=== PATIENT | female | born 1950 | race Caucasian/White ===

== ENCOUNTER 2017-03-26 15:26 | Emergency (ER) | payer MEDICARE, OTHER ==
[~2017-03-26] VITALS: Ht 157.5 cm; Wt 65.5 kg
[~2017-03-26 15:26] MED LIST: ADV250 IH; ALBU8HFA IH; ARIP2 PO; AUD NEB; AZIT250T6 PO; DONE10TA PO; GABA-531 PO; LISI-662 PO; METF500T4 PO; METO50 PO; MORP30CP13 PO; OMEP20 PO; OXYC20 PO; SENN-161 PO; SIMV-259 PO; TEMA15CA PO; TRAZ-144 PO
[2017-03-26 18:49] LABS: BASOPHILS % (AUTO) 0.4 % (0.0-2.0); HEMATOCRIT 36.5 % (36-46); HEMOGLOBIN 12.4 g/dL (12.0-16.0); LYMPHOCYTES # (AUTO) 1.6 K/uL (1.0-4.8); LYMPHOCYTES % (AUTO) 25.1 % (22.0-44.0); MEAN CORPUSCULAR HEMOGLOBIN 30.6 pg (26.0-34.0); MEAN CORPUSCULAR HGB CONC 33.9 G/dL (31.0-37.0); MEAN CORPUSCULAR VOLUME 90 fL (80-100); MONOCYTES # (AUTO) 0.5 K/uL (0.1-1.0); MONOCYTES % (AUTO) 8.1 % (2.0-9.0); NEUTROPHILS # (AUTO) 4.2 K/uL (1.8-7.7); NEUTROPHILS % (AUTO) 64.4 % (40.0-70.0); PLATELET COUNT (AUTO) 222 K/uL (150-450); RED BLOOD CELL COUNT(AUTO) 4.05 MIL/uL (4.00-5.20); RED CELL DISTRIBUTION WIDTH 14.8 % (11.5-14.5); WHITE BLOOD COUNT (AUTO) 6.5 K/uL (4.5-11.0)
[2017-03-26 18:59] LABS: CALCIUM, TOTAL 9.1 mg/dL (8.8-10.5); CREATININE 1.15 mg/dL (0.60-1.30); POTASSIUM 4.4 mmol/L (3.5-5.1)
[2017-03-26 19:05] LABS: ALBUMIN 3.3 g/dL (3.4-5.0); BILIRUBIN,TOTAL 0.2 mg/dL (0.1-1.0); TOTAL PROTEIN, SERUM 6.3 g/dL (6.4-8.2)
[2017-03-26 19:38] LABS: APPEARANCE,URINE CLEAR (CLEAR); GLUCOSE, URINE (UA) NEGATIVE (NEGATIVE); KETONES,URINE NEGATIVE (NEGATIVE); LEUKOCYTE ESTERASE ,URINE MODERATE (NEGATIVE); OCCULT BLOOD,URINE NEGATIVE (NEGATIVE); PH,URINE 6.5 (5.0-8.0); PROTEIN,URINE NEGATIVE (NEGATIVE)
[2017-03-26 19:40] LABS: ADD UA MICROSCOPIC YES
[2017-03-26 19:48] LABS: RBC,URINE None Seen /HPF (0-2); SQUAMOUS EPITHELIAL CELL,UR Rare /LPF (None Seen)
[2017-03-26 20:15] VITALS: BP 109/62
[2017-03-26] MEDS ORDERED: TraMADol HCL 50 MG TABLET PO ONE (20:15)
== END 2017-03-26 20:31 | disposition home or self-care (01) ==
LOC: EMS 15:29
DX: N39.0 Urinary tract infection, site not specified (principal); E11.9 Type 2 diabetes mellitus without complications; E78.00 Pure hypercholesterolemia, unspecified; I11.9 Hypertensive heart disease without heart failure; G89.29 Other chronic pain; J44.9 Chronic obstructive pulmonary disease, unspecified; K21.9 Gastro-esophageal reflux disease without esophagitis; F17.210 Nicotine dependence, cigarettes, uncomplicated; Z86.73 Personal history of transient ischemic attack (TIA), and cerebral infarction without residual deficits; Z76.0 Encounter for issue of repeat prescription; Z88.6 Allergy status to analgesic agent
CPT/HCPCS: 82962; 87086; 99284

== ENCOUNTER 2017-05-17 17:04 | Inpatient (IN) | payer MEDICARE, OTHER ==
[~2017-05-17] VITALS: Ht 157.5 cm; Wt 63.8 kg
[~2017-05-17 17:04] MED LIST changes: -DONE10TA PO; +DONE10TA8 PO
[2017-05-17] MEDS ORDERED: AMLO-511 PO (17:42)
[2017-05-17] MEDS ORDERED: OXYC10 PO (17:42)
[2017-05-17] MEDS ORDERED: TRAM50TA4 PO (17:42)
[2017-05-17] MEDS ORDERED: SERT50TA12 PO (17:42)
[2017-05-17] MEDS ORDERED: CLON.5 PO (17:42)
[2017-05-17] MEDS ORDERED: VITAD1000 PO (17:42)
[2017-05-17 18:09] LABS: BASOPHILS % (AUTO) 0.3 % (0.0-2.0); EOSINOPHILS % (AUTO) 1.5 % (1.0-6.0); HEMATOCRIT 33.9 % (36-46); HEMOGLOBIN 11.4 g/dL (12.0-16.0); LYMPHOCYTES # (AUTO) 1.2 K/uL (1.0-4.8); LYMPHOCYTES % (AUTO) 13.9 % (22.0-44.0); MEAN CORPUSCULAR HEMOGLOBIN 31.1 pg (26.0-34.0); MEAN CORPUSCULAR HGB CONC 33.7 G/dL (31.0-37.0); MEAN CORPUSCULAR VOLUME 92 fL (80-100); MONOCYTES # (AUTO) 0.6 K/uL (0.1-1.0); MONOCYTES % (AUTO) 6.6 % (2.0-9.0); NEUTROPHILS # (AUTO) 6.7 K/uL (1.8-7.7); NEUTROPHILS % (AUTO) 77.7 % (40.0-70.0); PLATELET COUNT (AUTO) 219 K/uL (150-450); RED BLOOD CELL COUNT(AUTO) 3.67 MIL/uL (4.00-5.20); RED CELL DISTRIBUTION WIDTH 13.8 % (11.5-14.5); WHITE BLOOD COUNT (AUTO) 8.6 K/uL (4.5-11.0)
[2017-05-17 18:30] LABS: ANION GAP 6 mmol/L (8-16); CARBON DIOXIDE 30 mmol/L (22-29); CHLORIDE 104 mmol/L (98-107); CREATININE 0.84 mg/dL (0.60-1.30); GLOMERULAR FILTR. RATE CALC > 60 mL/min (>60); POTASSIUM 4.2 mmol/L (3.5-5.1); SODIUM SERUM 140 mmol/L (136-145); UREA NITROGEN, BLOOD 9 mg/dL (7-18)
[2017-05-17 18:31] LABS: PROTHROMBIN TIME 10.6 SEC (9.4-11.6)
[2017-05-17 18:36] LABS: ALANINE AMINOTRANSFERASE 21 U/L (12-78); ASPARTATE AMINOTRANSFERASE 16 U/L (15-37); BILIRUBIN,TOTAL 0.3 mg/dL (0.1-1.0); CREATINE KINASE, TOTAL 25 U/L (26-192); TOTAL PROTEIN, SERUM 6.1 g/dL (6.4-8.2)
[2017-05-17 18:38] LABS: B-TYPE NATRIURETIC PEPTIDE 16 pg/mL (0-100)
[2017-05-17] MEDS ORDERED: CLOPIDOGREL BISULFATE 75 MG TABLET PO ONE (18:45)
[2017-05-17] MEDS ORDERED: ALBUTEROL SULFATE 5 MG/ML 20 ML NEB SOLN [BULK] NEB ONE (18:45)
[2017-05-17] MEDS ORDERED: IPRATROPIUM BROMIDE 0.5 MG/2.5 ML NEB SOLUTION NEB ONE (18:45)
[2017-05-17] MEDS ORDERED: CefTRIAXone 1 GM/DEXTROSE 50 ML IV ONE (18:45)
[2017-05-17] MEDS ORDERED: ONDANSETRON HCL 4 MG/2 ML VIAL IVP ONE (18:45)
[2017-05-17] MEDS ORDERED: MethylPREDNISolone SOD SUCC 125 MG/2 ML VIAL IVP ONE (18:45)
[2017-05-17] MEDS ORDERED: 0.9% SODIUM CHLORIDE 5 ML NEB SOLUTION NEB ONE (19:06)
[2017-05-17] MEDS ORDERED: NITROGLYCERIN 0.4 MG SUBLINGUAL TABLET #25 SL ONE (19:15)
[2017-05-17] MEDS ORDERED: MORPHINE SULFATE 2 MG/ML SYRINGE IVP ONE (19:15)
[2017-05-17 19:44] LABS: APPEARANCE,URINE CLOUDY (CLEAR); GLUCOSE, URINE (UA) NEGATIVE (NEGATIVE); KETONES,URINE NEGATIVE (NEGATIVE); LEUKOCYTE ESTERASE ,URINE SMALL (NEGATIVE); OCCULT BLOOD,URINE NEGATIVE (NEGATIVE); PH,URINE 5.5 (5.0-8.0); PROTEIN,URINE NEGATIVE (NEGATIVE)
[2017-05-17 19:46] LABS: ADD UA MICROSCOPIC YES
[2017-05-17 20:06] LABS: SQUAMOUS EPITHELIAL CELL,UR Few /LPF (None Seen)
[2017-05-17 20:07] LABS: RBC,URINE 0-2 /HPF (0-2); TRANSITIONAL EPI CELLS,URINE Moderate /LPF (None Seen)
[2017-05-17] MEDS ORDERED: 0.9% SODIUM CHLORIDE 10 ML SYRINGE IVP PRN (20:45)
[2017-05-17] MEDS ORDERED: ONDANSETRON HCL 4 MG/2 ML VIAL IVP PRN (20:45)
[2017-05-17] MEDS ORDERED: ACETAMINOPHEN 325 MG TABLET PO PRN (20:45)
[2017-05-17 20:53] LABS: INFLUENZA TYPE B NEGATIVE FOR TYPE B (NEGATIVE)
[2017-05-17 21:46] VITALS: BP 98/51
[2017-05-17] MEDS ORDERED: IPRATROPIUM BROMIDE 0.5 MG/2.5 ML NEB SOLUTION NEB SCH (23:00)
[2017-05-17] MEDS ORDERED: ALBUTEROL SULFATE 2.5 MG/0.5 ML NEB SOLUTION NEB SCH (23:00)
[2017-05-17 23:39] VITALS: BP 101/60
[2017-05-18] MEDS ORDERED: DEXTROSE 50%-WATER 25 GM/50 ML SYRINGE IVP PRN (00:45)
[2017-05-18] MEDS ORDERED: BISACODYL 10 MG RECTAL RECTAL SUPPOSITORY PR PRN (01:00)
[2017-05-18] MEDS ORDERED: MAGNESIUM HYDROXIDE SUSPENSION 30 ML UDCUP PO PRN (01:00)
[2017-05-18] MEDS ORDERED: IPRATROPIUM BROMIDE 0.5 MG/2.5 ML NEB SOLUTION NEB PRN (01:00)
[2017-05-18] MEDS ORDERED: ONDANSETRON HCL 4 MG/2 ML VIAL IVP PRN (01:00)
[2017-05-18] MEDS ORDERED: ALBUTEROL SULFATE 2.5 MG/0.5 ML NEB SOLUTION NEB PRN (01:00)
[2017-05-18] MEDS ORDERED: 0.9% SODIUM CHLORIDE 10 ML SYRINGE IVP PRN (01:00)
[2017-05-18] MEDS ORDERED: ACETAMINOPHEN 325 MG TABLET PO PRN (01:00)
[2017-05-18] MEDS: AZITHROMYCIN 500 MG/NS 250 ML IV SCH (01:00)
[2017-05-18] MEDS ORDERED: SODIUM CHLORIDE 0.9% 250 ML IV ONE (01:31)
[2017-05-18] MEDS: IPRATROPIUM BROMIDE 0.5 MG/2.5 ML NEB SOLUTION NEB SCH ×4 (03:31→20:33)
[2017-05-18] MEDS: ALBUTEROL SULFATE 2.5 MG/0.5 ML NEB SOLUTION NEB SCH ×4 (03:31→20:34)
[2017-05-18 05:35] VITALS: BP 100/53
[2017-05-18] MEDS: INSULIN ASPART 100 UNITS/ML SQ PRN ×4 (06:33→21:33)
[2017-05-18 06:44] LABS: BASOPHILS # (AUTO) 0.03 K/uL (0.00-0.20); BASOPHILS % (AUTO) 0.5 % (0.0-2.0); EOSINOPHILS % (AUTO) 0.04 % (1.0-6.0); HEMATOCRIT 34.1 % (36-46); HEMOGLOBIN 11.4 g/dL (12.0-16.0); LYMPHOCYTES # (AUTO) 0.4 K/uL (1.0-4.8); LYMPHOCYTES % (AUTO) 6.6 % (22.0-44.0); MEAN CORPUSCULAR HEMOGLOBIN 31.1 pg (26.0-34.0); MEAN CORPUSCULAR HGB CONC 33.4 G/dL (31.0-37.0); MEAN CORPUSCULAR VOLUME 93 fL (80-100); MONOCYTES % (AUTO) 0.5 % (2.0-9.0); NEUTROPHILS # (AUTO) 5.7 K/uL (1.8-7.7); PLATELET COUNT (AUTO) 185 K/uL (150-450); RED BLOOD CELL COUNT(AUTO) 3.66 MIL/uL (4.00-5.20); WHITE BLOOD COUNT (AUTO) 6.2 K/uL (4.5-11.0)
[2017-05-18 06:49] LABS: NEUTROPHILS % (AUTO) 92.4 % (40.0-70.0)
[2017-05-18 07:18] VITALS: BP 127/68
[2017-05-18 07:54] LABS: IRON, SERUM 42 mcg/dL (50-175); TOTAL IRON BINDING CAPACITY 235 mcg/dL (250-450)
[2017-05-18] MEDS: DOCUSATE SODIUM 100 MG CAPSULE PO SCH ×2 (08:17→20:12)
[2017-05-18] MEDS: FLUTICASONE/SALMETEROL 250 MCG-50 MCG/INH DISKUS INHALER [28] IH SCH ×2 (08:17→20:13)
[2017-05-18] MEDS: GABAPENTIN 300 MG CAPSULE PO SCH ×3 (08:17→20:12)
[2017-05-18] MEDS: OMEPRAZOLE 20 MG CAPSULE PO SCH (08:17)
[2017-05-18] MEDS: LISINOPRIL 20 MG TABLET PO SCH (08:17)
[2017-05-18] MEDS: METOPROLOL TARTRATE 50 MG TABLET PO SCH (08:18)
[2017-05-18] MEDS: OxyCODONE HCL 10 MG ER TABLET PO SCH ×3 (08:18→20:13)
[2017-05-18] MEDS: CHOLECALCIFEROL (VIT D3) 1,000 UNITS TABLET PO SCH (08:18)
[2017-05-18] MEDS: SIMVASTATIN 10 MG TABLET PO SCH (08:18)
[2017-05-18] MEDS: ClonazePAM 0.5 MG TABLET PO SCH (08:18)
[2017-05-18] MEDS: AmLODIPine BESYLATE 5 MG TABLET PO SCH (08:18)
[2017-05-18] MEDS: TraMADol HCL 50 MG TABLET PO SCH (08:18)
[2017-05-18] MEDS: ARIPiprazole 2 MG TABLET PO SCH (08:19)
[2017-05-18] MEDS: SERTRALINE HCL 50 MG TABLET PO SCH (08:26)
[2017-05-18 08:59] LABS: ALANINE AMINOTRANSFERASE 18 U/L (12-78); ALBUMIN 2.8 g/dL (3.4-5.0); ANION GAP 3 mmol/L (8-16); ASPARTATE AMINOTRANSFERASE 12 U/L (15-37); BILIRUBIN,TOTAL 0.2 mg/dL (0.1-1.0); CALCIUM, TOTAL 8.8 mg/dL (8.8-10.5); CARBON DIOXIDE 31 mmol/L (22-29); CHLORIDE 106 mmol/L (98-107); CREATININE 0.89 mg/dL (0.60-1.30); FERRITIN 389 ng/mL (8-252); GLOMERULAR FILTR. RATE CALC > 60 mL/min (>60); POTASSIUM 5.4 mmol/L (3.5-5.1); SODIUM SERUM 140 mmol/L (136-145); THYROID STIMULATING HORMONE 0.26 uIU/mL (0.36-3.74); TOTAL PROTEIN, SERUM 5.5 g/dL (6.4-8.2); UREA NITROGEN, BLOOD 14 mg/dL (7-18)
[2017-05-18 09:05] LABS: PROCALCITONIN (PCT) < 0.05 ng/mL (<0.50)
[2017-05-18 12:00] VITALS: BP 99/54
[2017-05-18] MEDS: OxyCODONE HCL/ACETAMINOPHEN 5-325 MG TABLET PO PRN ×2 (12:44→17:37)
[2017-05-18 15:48] VITALS: BP 102/60
[2017-05-18] MEDS: MethylPREDNISolone SOD SUCC 40 MG/ML VIAL IVP SCH (16:13)
[2017-05-18 17:09] LABS: ABG OXYHEMOGLOBIN 97.1 % (94.0-100.0); TEMPERATURE, FAHRENHEIT, BG 98.6 FAHREN (96.0-98.6)
[2017-05-18 17:13] LABS: ABG A-A DIFF O2 152.7 mmHg (10-20.0); ABG BASE EXCESS 2.9 mmol/L (-2.0-3.0); ABG HCO3 26.5 mmol/L (22.0-26.0); ABG PCO2 48 mmHg (35-45)
[2017-05-18 17:15] LABS: ALLEN TEST, BLOOD GAS Positive
[2017-05-18] MEDS ORDERED: CefTRIAXone 1 GM/DEXTROSE 50 ML IV SCH (18:00)
[2017-05-18] MEDS ORDERED: PERMETHRIN 5% 60 GM CREAM TP ONE (18:30)
[2017-05-18 20:09] VITALS: BP 90/47
[2017-05-18 20:12] LABS: GLUCOSE COMMENT 1 Received Meds; GLUCOSE,POINT OF CARE 147 MG/DL (70-110)
[2017-05-18 20:12] LABS: GLUCOSE COMMENT 1 Received Meds; GLUCOSE,POINT OF CARE 145 MG/DL (70-110)
[2017-05-18 20:12] LABS: GLUCOSE COMMENT 1 Received Meds; GLUCOSE,POINT OF CARE 200 MG/DL (70-110)
[2017-05-18] MEDS: TraZODone HCL 50 MG TABLET PO SCH (20:12)
[2017-05-18] MEDS: DONEPEZIL HCL 10 MG TABLET PO SCH (20:12)
[2017-05-18 23:57] VITALS: BP 107/48
[2017-05-19] VITALS (9 sets, daily range): BP systolic 101–135; BP diastolic 53–75
[2017-05-19] MEDS: MethylPREDNISolone SOD SUCC 40 MG/ML VIAL IVP SCH ×3 (00:31→16:27)
[2017-05-19] MEDS: AZITHROMYCIN 500 MG/NS 250 ML IV SCH (01:19)
[2017-05-19] MEDS: OxyCODONE HCL/ACETAMINOPHEN 5-325 MG TABLET PO PRN ×3 (02:41→19:58)
[2017-05-19] MEDS: IPRATROPIUM BROMIDE 0.5 MG/2.5 ML NEB SOLUTION NEB SCH ×4 (02:54→21:32)
[2017-05-19] MEDS: ALBUTEROL SULFATE 2.5 MG/0.5 ML NEB SOLUTION NEB SCH ×4 (02:54→21:32)
[2017-05-19] MEDS: OxyCODONE HCL 10 MG ER TABLET PO SCH ×3 (04:25→20:12)
[2017-05-19 06:02] LABS: BASOPHILS % (AUTO) 0.1 % (0.0-2.0); EOSINOPHILS % (AUTO) 0 % (1.0-6.0); HEMATOCRIT 36.1 % (36-46); LYMPHOCYTES # (AUTO) 0.2 K/uL (1.0-4.8); MEAN CORPUSCULAR HEMOGLOBIN 31.3 pg (26.0-34.0); MEAN CORPUSCULAR HGB CONC 33.3 G/dL (31.0-37.0); MEAN CORPUSCULAR VOLUME 94 fL (80-100); MONOCYTES # (AUTO) 0.1 K/uL (0.1-1.0); MONOCYTES % (AUTO) 1.1 % (2.0-9.0); PLATELET COUNT (AUTO) 224 K/uL (150-450); RED BLOOD CELL COUNT(AUTO) 3.84 MIL/uL (4.00-5.20); RED CELL DISTRIBUTION WIDTH 13.4 % (11.5-14.5); WHITE BLOOD COUNT (AUTO) 11.4 K/uL (4.5-11.0)
[2017-05-19 06:16] LABS: CALCIUM, TOTAL 9.4 mg/dL (8.8-10.5); CREATININE 0.98 mg/dL (0.60-1.30); POTASSIUM 4.3 mmol/L (3.5-5.1)
[2017-05-19] MEDS: INSULIN ASPART 100 UNITS/ML SQ PRN ×2 (06:18→21:05)
[2017-05-19 07:01] LABS: NEUTROPHILS % (AUTO) 96.8 % (40.0-70.0)
[2017-05-19] MEDS ORDERED: MAGNESIUM SULFATE 2 GM in DEXTROSE 5%-WATER 50 ML IV ONE (07:45)
[2017-05-19] MEDS: SIMVASTATIN 10 MG TABLET PO SCH (08:07)
[2017-05-19] MEDS: OMEPRAZOLE 20 MG CAPSULE PO SCH (08:07)
[2017-05-19] MEDS: GABAPENTIN 300 MG CAPSULE PO SCH ×3 (08:07→20:12)
[2017-05-19] MEDS: FLUTICASONE/SALMETEROL 250 MCG-50 MCG/INH DISKUS INHALER [28] IH SCH ×2 (08:08→20:11)
[2017-05-19] MEDS: DOCUSATE SODIUM 100 MG CAPSULE PO SCH ×2 (08:08→20:13)
[2017-05-19] MEDS: CHOLECALCIFEROL (VIT D3) 1,000 UNITS TABLET PO SCH (08:08)
[2017-05-19] MEDS: ARIPiprazole 2 MG TABLET PO SCH (08:08)
[2017-05-19] MEDS: TraMADol HCL 50 MG TABLET PO SCH (08:08)
[2017-05-19] MEDS: LISINOPRIL 20 MG TABLET PO SCH (08:08)
[2017-05-19] MEDS: AmLODIPine BESYLATE 5 MG TABLET PO SCH (09:30)
[2017-05-19] MEDS: METOPROLOL TARTRATE 50 MG TABLET PO SCH (09:34)
[2017-05-19] MEDS: SERTRALINE HCL 50 MG TABLET PO SCH (11:07)
[2017-05-19] MEDS: ClonazePAM 0.5 MG TABLET PO SCH (11:07)
[2017-05-19 12:38] LABS: GLUCOSE COMMENT 1 Received Meds; GLUCOSE,POINT OF CARE 193 MG/DL (70-110)
[2017-05-19 12:38] LABS: GLUCOSE COMMENT 1 Received Meds; GLUCOSE,POINT OF CARE 171 MG/DL (70-110)
[2017-05-19] MEDS ORDERED: SODIUM CHLORIDE 0.9% 100 ML ONE (14:02)
[2017-05-19] MEDS: CefoTEtan DISOD 1 GM/DEXTROSE 50 ML IV SCH (14:05)
[2017-05-19 18:57] LABS: GLUCOSE,POINT OF CARE 97 MG/DL (70-110)
[2017-05-19 18:57] LABS: GLUCOSE,POINT OF CARE 133 MG/DL (70-110)
[2017-05-19] MEDS: DONEPEZIL HCL 10 MG TABLET PO SCH (20:12)
[2017-05-19] MEDS: TraZODone HCL 50 MG TABLET PO SCH (21:07)
[2017-05-20] VITALS (7 sets, daily range): BP systolic 111–146; BP diastolic 47–91
[2017-05-20] MEDS: MethylPREDNISolone SOD SUCC 40 MG/ML VIAL IVP SCH ×3 (00:53→15:38)
[2017-05-20] MEDS: CefoTEtan DISOD 1 GM/DEXTROSE 50 ML IV SCH ×2 (00:53→12:38)
[2017-05-20] MEDS: OxyCODONE HCL/ACETAMINOPHEN 5-325 MG TABLET PO PRN ×3 (01:10→12:54)
[2017-05-20] MEDS: AZITHROMYCIN 500 MG/NS 250 ML IV SCH (01:39)
[2017-05-20] MEDS: ALBUTEROL SULFATE 2.5 MG/0.5 ML NEB SOLUTION NEB SCH ×3 (02:02→15:01)
[2017-05-20] MEDS: IPRATROPIUM BROMIDE 0.5 MG/2.5 ML NEB SOLUTION NEB SCH ×3 (02:02→15:01)
[2017-05-20 06:07] LABS: GLUCOSE,POINT OF CARE 106 MG/DL (70-110)
[2017-05-20 06:07] LABS: GLUCOSE COMMENT 1 Received Meds; GLUCOSE,POINT OF CARE 156 MG/DL (70-110)
[2017-05-20] MEDS: SIMVASTATIN 10 MG TABLET PO SCH (07:45)
[2017-05-20] MEDS: DOCUSATE SODIUM 100 MG CAPSULE PO SCH (07:45)
[2017-05-20] MEDS: CHOLECALCIFEROL (VIT D3) 1,000 UNITS TABLET PO SCH (07:45)
[2017-05-20] MEDS: GABAPENTIN 300 MG CAPSULE PO SCH ×2 (07:45→15:38)
[2017-05-20] MEDS: OMEPRAZOLE 20 MG CAPSULE PO SCH (07:45)
[2017-05-20] MEDS: FLUTICASONE/SALMETEROL 250 MCG-50 MCG/INH DISKUS INHALER [28] IH SCH (07:46)
[2017-05-20] MEDS: OxyCODONE HCL 10 MG ER TABLET PO SCH ×2 (08:03→15:38)
[2017-05-20] MEDS: TraMADol HCL 50 MG TABLET PO SCH (08:03)
[2017-05-20] MEDS: METOPROLOL TARTRATE 50 MG TABLET PO SCH (08:03)
[2017-05-20] MEDS: LISINOPRIL 20 MG TABLET PO SCH (11:05)
[2017-05-20] MEDS: ARIPiprazole 2 MG TABLET PO SCH (11:05)
[2017-05-20] MEDS: SERTRALINE HCL 50 MG TABLET PO SCH (11:05)
[2017-05-20] MEDS: ClonazePAM 0.5 MG TABLET PO SCH (11:05)
[2017-05-20 12:19] LABS: ORGANISM ID Not indicated.
[2017-05-20] MEDS: AmLODIPine BESYLATE 5 MG TABLET PO SCH (12:38)
[2017-05-20] MEDS ORDERED: PredniSONE 20 MG TABLET PO ONE (18:15)
[2017-05-20] MEDS ORDERED: NITR100C PO (18:27)
[2017-05-20] MEDS ORDERED: PRED5TAB PO (18:30)
[2017-05-20 20:09] LABS: MYCOPLASMA AB IGG <100 U/mL (0-99)
[2017-05-23 23:32] LABS: GLUCOSE,POINT OF CARE 129 MG/DL (70-110)
[2017-05-23 23:32] LABS: GLUCOSE,POINT OF CARE 106 MG/DL (70-110)
== END 2017-05-20 19:50 | disposition home or self-care (01) | DRG 190 ==
LOC: EMS 17:05 → 5N 20:20
PROVIDERS: ADMIT Internal Medicine; ATTEND Internal Medicine
DX: J44.0 Chronic obstructive pulmonary disease with (acute) lower respiratory infection (principal); J96.00 Acute respiratory failure, unspecified whether with hypoxia or hypercapnia; J44.1 Chronic obstructive pulmonary disease with (acute) exacerbation; J18.8 Other pneumonia, unspecified organism; N39.0 Urinary tract infection, site not specified; G81.94 Hemiplegia, unspecified affecting left nondominant side; Z88.3 Allergy status to other anti-infective agents; F20.9 Schizophrenia, unspecified; G89.29 Other chronic pain; M54.9 Dorsalgia, unspecified; F03.90 Unspecified dementia, unspecified severity, without behavioral disturbance, psychotic disturbance, mood disturbance, and anxiety; E87.5 Hyperkalemia; I10 Essential (primary) hypertension; E11.9 Type 2 diabetes mellitus without complications; E78.00 Pure hypercholesterolemia, unspecified; Z86.73 Personal history of transient ischemic attack (TIA), and cerebral infarction without residual deficits; K21.9 Gastro-esophageal reflux disease without esophagitis; Z88.6 Allergy status to analgesic agent; F17.210 Nicotine dependence, cigarettes, uncomplicated; Z79.899 Other long term (current) drug therapy
CPT/HCPCS: 82270; 82607; 82728; 82746; 82805; 82962; 83540; 83550; 83735; 84100; 84145; 84439; 84443; 87040; 87070; 87081; 87086; 87106; 87205; 87449; 87798; 87804; 87899; 93005; 93306; 93970; 94640; 96365; 96375; 97162; 97165; 97535; 99291; J0456; J0696; J2270; J2405; J2920; J2930; J3475; J3490; J3535; J7050; J7060

== ENCOUNTER 2017-06-01 21:35 | Inpatient (IN) | payer MEDICARE, OTHER ==
[~2017-06-01] VITALS: Ht 157.5 cm; Wt 61.1 kg
[~2017-06-01 21:35] MED LIST changes: +AMLO-511 PO; -AZIT250T6 PO; +CLON.5 PO; +NITR100C PO; +OXYC10 PO; -OXYC20 PO; +PRED5TAB PO; +SERT50TA12 PO; -TEMA15CA PO; +TRAM50TA4 PO; +VITAD1000 PO
[2017-06-01] MEDS ORDERED: ONDANSETRON HCL 4 MG/2 ML VIAL IVP ONE (22:00)
[2017-06-01] MEDS ORDERED: IPRATROPIUM BROMIDE 0.5 MG/2.5 ML NEB SOLUTION NEB ONE (22:00)
[2017-06-01] MEDS ORDERED: CefTRIAXone 1 GM/DEXTROSE 50 ML IV ONE (22:00)
[2017-06-01] MEDS ORDERED: SODIUM CHLORIDE 0.9% 1,000 ML IV ONE (22:00)
[2017-06-01] MEDS ORDERED: ALBUTEROL SULFATE 5 MG/ML 20 ML NEB SOLN [BULK] NEB ONE (22:00)
[2017-06-01 22:26] LABS: HEMATOCRIT 43.9 % (36-46); HEMOGLOBIN 14.6 g/dL (12.0-16.0); MEAN CORPUSCULAR HEMOGLOBIN 30.5 pg (26.0-34.0); MEAN CORPUSCULAR HGB CONC 33.2 G/dL (31.0-37.0); MEAN CORPUSCULAR VOLUME 92 fL (80-100); PLATELET COUNT (AUTO) 280 K/uL (150-450); RED BLOOD CELL COUNT(AUTO) 4.78 MIL/uL (4.00-5.20); RED CELL DISTRIBUTION WIDTH 14.7 % (11.5-14.5); WHITE BLOOD COUNT (AUTO) 17.2 K/uL (4.5-11.0)
[2017-06-01 22:41] LABS: ANION GAP 15 mmol/L (8-16); CALCIUM, TOTAL 9.1 mg/dL (8.8-10.5); CARBON DIOXIDE 25 mmol/L (22-29); CHLORIDE 101 mmol/L (98-107); CREATININE 2.32 mg/dL (0.60-1.30); GLOMERULAR FILTR. RATE CALC 21 mL/min (>60); POTASSIUM 3.1 mmol/L (3.5-5.1); SODIUM SERUM 141 mmol/L (136-145); UREA NITROGEN, BLOOD 54 mg/dL (7-18)
[2017-06-01 22:48] LABS: ALANINE AMINOTRANSFERASE 11 U/L (12-78); ALBUMIN 3.2 g/dL (3.4-5.0); ASPARTATE AMINOTRANSFERASE 6 U/L (15-37); BILIRUBIN,TOTAL 0.2 mg/dL (0.1-1.0); TOTAL PROTEIN, SERUM 6.6 g/dL (6.4-8.2)
[2017-06-01 22:51] LABS: B-TYPE NATRIURETIC PEPTIDE 49 pg/mL (0-100)
[2017-06-01 23:07] LABS: LYMPHOCYTES % (MANUAL) 14 % (22-44); TOTAL CELLS COUNTED 100
[2017-06-01 23:20] LABS: INFLUENZA TYPE B NEGATIVE FOR TYPE B (NEGATIVE)
[2017-06-01 23:31] LABS: LACTIC ACID 2.2 mmol/L (0.4-2.0)
[2017-06-02 00:21] LABS: REFLEX LACTIC ACID? YES YES
[2017-06-02 00:41] LABS: APPEARANCE,URINE CLOUDY (CLEAR); GLUCOSE, URINE (UA) NEGATIVE (NEGATIVE); KETONES,URINE TRACE mg/dL (NEGATIVE); LEUKOCYTE ESTERASE ,URINE SMALL (NEGATIVE); OCCULT BLOOD,URINE TRACE (NEGATIVE); PROTEIN,URINE SEE CONFIRM (NEGATIVE)
[2017-06-02] MEDS ORDERED: NITROGLYCERIN 2% (1 GM=INCH) PACKET TP ONE (01:00)
[2017-06-02] MEDS ORDERED: CLOPIDOGREL BISULFATE 75 MG TABLET PO ONE (01:00)
[2017-06-02 01:02] LABS: SULFOSALICYLIC ACID,URINE 1+ (Negative)
[2017-06-02 01:04] LABS: FINE GRANULAR CASTS,URINE 0-2 /LPF (None Seen); HYALINE CASTS, URINE 0-2 /LPF (None Seen); SQUAMOUS EPITHELIAL CELL,UR Moderate /LPF (None Seen)
[2017-06-02 01:06] LABS: RBC,URINE 0-2 /HPF (0-2)
[2017-06-02] MEDS ORDERED: ACETAMINOPHEN 325 MG TABLET PO PRN (01:15)
[2017-06-02] MEDS ORDERED: ONDANSETRON HCL 4 MG/2 ML VIAL IVP PRN (01:15)
[2017-06-02] MEDS ORDERED: 0.9% SODIUM CHLORIDE 10 ML SYRINGE IVP PRN (01:15)
[2017-06-02] MEDS ORDERED: POTASSIUM CHLORIDE 10% 40 MEQ/30 ML LIQUID UDCUP PO ONE (01:15)
[2017-06-02 02:44] VITALS: BP 114/64
[2017-06-02] MEDS ORDERED: IPRATROPIUM BROMIDE 0.5 MG/2.5 ML NEB SOLUTION NEB SCH (03:00)
[2017-06-02] MEDS ORDERED: ALBUTEROL SULFATE 2.5 MG/0.5 ML NEB SOLUTION NEB SCH (03:00)
[2017-06-02] MEDS ORDERED: ALBUTEROL SULFATE HFA 90 MCG/PUFF 8 GM INHALER IH PRN (06:15)
[2017-06-02] MEDS ORDERED: ALBUTEROL SULFATE 2.5 MG/0.5 ML NEB SOLUTION NEB PRN (06:15)
[2017-06-02] MEDS ORDERED: LIDOCAINE HCL/PF 1% 2 ML VIAL IM ONE (06:15)
[2017-06-02] MEDS ORDERED: MINERAL OIL 300 ML RECTAL PR ONE (06:45)
[2017-06-02] MEDS ORDERED: DEXTROSE 50%-WATER 25 GM/50 ML SYRINGE IVP PRN (06:45)
[2017-06-02] MEDS ORDERED: MINERAL OIL 133 ML ENEMA PR ONE (07:30)
[2017-06-02] MEDS: TraMADol HCL 50 MG TABLET PO SCH (07:36)
[2017-06-02 07:52] VITALS: BP 103/64
[2017-06-02] MEDS ORDERED: MORPHINE SULFATE 30 MG ER TABLET PO SCH (08:00)
[2017-06-02] MEDS: LACTULOSE 20 GM/30 ML SOLUTION UDCUP PO SCH ×3 (08:51→18:00)
[2017-06-02] MEDS: SODIUM CHLORIDE 0.45% 1,000 ML IV SCH ×2 (08:52→15:47)
[2017-06-02] MEDS: MethylPREDNISolone SOD SUCC 40 MG/ML VIAL IVP SCH ×2 (08:52→15:46)
[2017-06-02] MEDS: OxyCODONE HCL 10 MG ER TABLET PO SCH ×2 (08:53→15:45)
[2017-06-02] MEDS: ARIPiprazole 2 MG TABLET PO SCH (08:54)
[2017-06-02] MEDS: ClonazePAM 0.5 MG TABLET PO SCH (08:55)
[2017-06-02] MEDS: PredniSONE 5 MG TABLET PO SCH (08:55)
[2017-06-02] MEDS: CHOLECALCIFEROL (VIT D3) 1,000 UNITS TABLET PO SCH (08:56)
[2017-06-02] MEDS: AmLODIPine BESYLATE 5 MG TABLET PO SCH (08:56)
[2017-06-02] MEDS: GABAPENTIN 300 MG CAPSULE PO SCH ×3 (08:56→20:59)
[2017-06-02] MEDS: SENNA 187 MG TABLET PO SCH (08:58)
[2017-06-02] MEDS: SERTRALINE HCL 50 MG TABLET PO SCH (08:58)
[2017-06-02] MEDS: SIMVASTATIN 10 MG TABLET PO SCH (09:00)
[2017-06-02 09:35] LABS: EOSINOPHILS % (AUTO) 0.4 % (1.0-6.0); HEMATOCRIT 39.2 % (36-46); HEMOGLOBIN 13.3 g/dL (12.0-16.0); LYMPHOCYTES # (AUTO) 1.7 K/uL (1.0-4.8); LYMPHOCYTES % (AUTO) 11.4 % (22.0-44.0); MEAN CORPUSCULAR HEMOGLOBIN 31.4 pg (26.0-34.0); MEAN CORPUSCULAR HGB CONC 33.8 G/dL (31.0-37.0); MEAN CORPUSCULAR VOLUME 93 fL (80-100); MONOCYTES # (AUTO) 0.1 K/uL (0.1-1.0); MONOCYTES % (AUTO) 0.8 % (2.0-9.0); NEUTROPHILS # (AUTO) 13.3 K/uL (1.8-7.7); PLATELET COUNT (AUTO) 247 K/uL (150-450); RED BLOOD CELL COUNT(AUTO) 4.23 MIL/uL (4.00-5.20); RED CELL DISTRIBUTION WIDTH 14.8 % (11.5-14.5); WHITE BLOOD COUNT (AUTO) 15.2 K/uL (4.5-11.0)
[2017-06-02 09:39] LABS: NEUTROPHILS % (AUTO) 87.4 % (40.0-70.0)
[2017-06-02 09:47] LABS: CALCIUM, TOTAL 8.4 mg/dL (8.8-10.5); CREATININE 1.43 mg/dL (0.60-1.30); MAGNESIUM 1.4 mg/dL (1.80-2.40); POTASSIUM 4.3 mmol/L (3.5-5.1)
[2017-06-02 11:48] VITALS: BP 97/56
[2017-06-02] MEDS: METOPROLOL TARTRATE 50 MG TABLET PO SCH (12:00)
[2017-06-02] MEDS: LISINOPRIL 20 MG TABLET PO SCH (12:00)
[2017-06-02] MEDS: INSULIN ASPART 100 UNITS/ML SQ PRN ×2 (12:10→21:57)
[2017-06-02 12:20] LABS: ABG A-A DIFF O2 64.7 mmHg (10-20.0); ABG BASE EXCESS -1.1 mmol/L (-2.0-3.0); ABG HCO3 23.7 mmol/L (22.0-26.0); ABG OXYHEMOGLOBIN 95.1 % (94.0-100.0); ABG PCO2 39 mmHg (35-45); ABG PH 7.402 (7.35-7.450); TEMPERATURE, FAHRENHEIT, BG 98.6 FAHREN (96.0-98.6)
[2017-06-02 12:24] LABS: ALLEN TEST, BLOOD GAS Positive
[2017-06-02 15:52] VITALS: BP 100/51
[2017-06-02] MEDS ORDERED: MAGNESIUM SULFATE 4 GM/WATER 100 ML IV PRN (18:15)
[2017-06-02 19:39] VITALS: BP 124/68
[2017-06-02] MEDS: AZITHROMYCIN 250 MG in SODIUM CHLORIDE 0.9% 150 ML IV SCH (20:58)
[2017-06-02] MEDS: TraZODone HCL 50 MG TABLET PO SCH (20:59)
[2017-06-02] MEDS: DONEPEZIL HCL 10 MG TABLET PO SCH (20:59)
[2017-06-02] MEDS ORDERED: SODIUM CHLORIDE 0.9% 250 ML IV ONE ×2 (21:03→21:58)
[2017-06-02] MEDS ORDERED: HYDROCODONE/ACETAMINOPHEN 5-325 MG TABLET PO PRN (21:45)
[2017-06-02] MEDS: MAGNESIUM SULFATE 2 GM in DEXTROSE 5%-WATER 50 ML IV PRN (21:54)
[2017-06-02] MEDS: CefTRIAXone SODIUM 2 GM in DEXTROSE 5%-WATER 50 ML IV SCH (22:11)
[2017-06-02] MEDS: MORPHINE SULFATE 2 MG/ML SYRINGE IVP PRN (22:11)
[2017-06-03] VITALS (7 sets, daily range): BP systolic 113–139; BP diastolic 61–76
[2017-06-03] MEDS: MethylPREDNISolone SOD SUCC 40 MG/ML VIAL IVP SCH ×3 (00:16→15:21)
[2017-06-03] MEDS: OxyCODONE HCL 10 MG ER TABLET PO SCH ×3 (00:16→15:21)
[2017-06-03] MEDS: SODIUM CHLORIDE 0.45% 1,000 ML IV SCH ×3 (02:02→22:05)
[2017-06-03] MEDS: LACTULOSE 20 GM/30 ML SOLUTION UDCUP PO SCH ×3 (05:38→12:00)
[2017-06-03 06:17] LABS: EOSINOPHILS % (AUTO) 0 % (1.0-6.0); HEMATOCRIT 39.9 % (36-46); HEMOGLOBIN 13.2 g/dL (12.0-16.0); LYMPHOCYTES # (AUTO) 0.7 K/uL (1.0-4.8); LYMPHOCYTES % (AUTO) 4.6 % (22.0-44.0); MEAN CORPUSCULAR HEMOGLOBIN 30.8 pg (26.0-34.0); MEAN CORPUSCULAR HGB CONC 33.1 G/dL (31.0-37.0); MEAN CORPUSCULAR VOLUME 93 fL (80-100); MONOCYTES # (AUTO) 0.1 K/uL (0.1-1.0); MONOCYTES % (AUTO) 0.6 % (2.0-9.0); NEUTROPHILS # (AUTO) 14.7 K/uL (1.8-7.7); PLATELET COUNT (AUTO) 229 K/uL (150-450); RED BLOOD CELL COUNT(AUTO) 4.28 MIL/uL (4.00-5.20); RED CELL DISTRIBUTION WIDTH 14.3 % (11.5-14.5); WHITE BLOOD COUNT (AUTO) 15.5 K/uL (4.5-11.0)
[2017-06-03 06:48] LABS: ALBUMIN 2.8 g/dL (3.4-5.0); BILIRUBIN,TOTAL 0.2 mg/dL (0.1-1.0); CALCIUM, TOTAL 8.4 mg/dL (8.8-10.5); CREATININE 0.97 mg/dL (0.60-1.30); MAGNESIUM 1.7 mg/dL (1.80-2.40); POTASSIUM 4.6 mmol/L (3.5-5.1); THYROID STIMULATING HORMONE 0.23 uIU/mL (0.36-3.74)
[2017-06-03 06:52] LABS: NEUTROPHILS % (AUTO) 94.8 % (40.0-70.0)
[2017-06-03 07:52] LABS: GLUCOSE COMMENT 1 Received Meds; GLUCOSE,POINT OF CARE 204 MG/DL (70-110)
[2017-06-03 07:52] LABS: GLUCOSE,POINT OF CARE 109 MG/DL (70-110)
[2017-06-03] MEDS: ARIPiprazole 2 MG TABLET PO SCH (08:04)
[2017-06-03] MEDS: PredniSONE 5 MG TABLET PO SCH (08:06)
[2017-06-03] MEDS: ClonazePAM 0.5 MG TABLET PO SCH (08:06)
[2017-06-03] MEDS: GABAPENTIN 300 MG CAPSULE PO SCH ×3 (08:07→20:38)
[2017-06-03] MEDS: METOPROLOL TARTRATE 50 MG TABLET PO SCH (08:07)
[2017-06-03] MEDS: SENNA 187 MG TABLET PO SCH (08:08)
[2017-06-03] MEDS: CHOLECALCIFEROL (VIT D3) 1,000 UNITS TABLET PO SCH (08:08)
[2017-06-03] MEDS: SIMVASTATIN 10 MG TABLET PO SCH (08:08)
[2017-06-03] MEDS: AmLODIPine BESYLATE 5 MG TABLET PO SCH (08:09)
[2017-06-03] MEDS: SERTRALINE HCL 50 MG TABLET PO SCH (08:09)
[2017-06-03] MEDS: MAGNESIUM OXIDE 400 MG TABLET PO PRN ×3 (09:58→17:57)
[2017-06-03 11:23] LABS: GLUCOSE,POINT OF CARE 131 MG/DL (70-110)
[2017-06-03 11:23] LABS: GLUCOSE COMMENT 1 Received Meds; GLUCOSE,POINT OF CARE 141 MG/DL (70-110)
[2017-06-03] MEDS: INSULIN ASPART 100 UNITS/ML SQ PRN ×2 (11:24→20:47)
[2017-06-03] MEDS: LISINOPRIL 20 MG TABLET PO SCH (12:00)
[2017-06-03] MEDS: TraMADol HCL 50 MG TABLET PO SCH (12:01)
[2017-06-03] MEDS: AZITHROMYCIN 250 MG in SODIUM CHLORIDE 0.9% 150 ML IV SCH (20:38)
[2017-06-03] MEDS: TraZODone HCL 50 MG TABLET PO SCH (20:40)
[2017-06-03] MEDS: DONEPEZIL HCL 10 MG TABLET PO SCH (20:41)
[2017-06-03] MEDS: CefTRIAXone SODIUM 2 GM in DEXTROSE 5%-WATER 50 ML IV SCH (22:04)
[2017-06-04] MEDS: OxyCODONE HCL 10 MG ER TABLET PO SCH ×2 (00:44→08:24)
[2017-06-04] MEDS: MethylPREDNISolone SOD SUCC 40 MG/ML VIAL IVP SCH ×2 (00:45→08:23)
[2017-06-04] MEDS: MORPHINE SULFATE 2 MG/ML SYRINGE IVP PRN ×3 (01:29→12:37)
[2017-06-04 04:43] VITALS: BP 138/74
[2017-06-04 06:48] LABS: GLUCOSE COMMENT 1 Received Meds; GLUCOSE,POINT OF CARE 179 MG/DL (70-110)
[2017-06-04 06:48] LABS: GLUCOSE,POINT OF CARE 139 MG/DL (70-110)
[2017-06-04 06:52] LABS: GLUCOSE,POINT OF CARE 203 MG/DL (70-110)
[2017-06-04 07:09] LABS: BASOPHILS % (AUTO) 0.1 % (0.0-2.0); EOSINOPHILS % (AUTO) 0.1 % (1.0-6.0); HEMATOCRIT 40.6 % (36-46); HEMOGLOBIN 13.4 g/dL (12.0-16.0); LYMPHOCYTES # (AUTO) 0.8 K/uL (1.0-4.8); LYMPHOCYTES % (AUTO) 5.5 % (22.0-44.0); MEAN CORPUSCULAR HEMOGLOBIN 30.6 pg (26.0-34.0); MEAN CORPUSCULAR HGB CONC 33.1 G/dL (31.0-37.0); MEAN CORPUSCULAR VOLUME 93 fL (80-100); MONOCYTES # (AUTO) 0.1 K/uL (0.1-1.0); NEUTROPHILS # (AUTO) 12.8 K/uL (1.8-7.7); RED BLOOD CELL COUNT(AUTO) 4.39 MIL/uL (4.00-5.20); RED CELL DISTRIBUTION WIDTH 14.4 % (11.5-14.5); WHITE BLOOD COUNT (AUTO) 13.8 K/uL (4.5-11.0)
[2017-06-04 07:11] LABS: NEUTROPHILS % (AUTO) 93.3 % (40.0-70.0)
[2017-06-04 07:12] LABS: PLATELET COUNT (AUTO) 223 K/uL (150-450)
[2017-06-04 07:27] LABS: ANION GAP 5 mmol/L (8-16); CALCIUM, TOTAL 8.6 mg/dL (8.8-10.5); CARBON DIOXIDE 28 mmol/L (22-29); CHLORIDE 103 mmol/L (98-107); CREATININE 0.85 mg/dL (0.60-1.30); GLOMERULAR FILTR. RATE CALC > 60 mL/min (>60); POTASSIUM 4.8 mmol/L (3.5-5.1); SODIUM SERUM 136 mmol/L (136-145); UREA NITROGEN, BLOOD 23 mg/dL (7-18)
[2017-06-04 07:31] LABS: ALANINE AMINOTRANSFERASE 13 U/L (12-78); ALBUMIN 2.7 g/dL (3.4-5.0); ASPARTATE AMINOTRANSFERASE 7 U/L (15-37); BILIRUBIN,TOTAL 0.2 mg/dL (0.1-1.0); TOTAL PROTEIN, SERUM 5.8 g/dL (6.4-8.2)
[2017-06-04 07:33] VITALS: BP 129/77
[2017-06-04] MEDS: ARIPiprazole 2 MG TABLET PO SCH (08:24)
[2017-06-04] MEDS: PredniSONE 5 MG TABLET PO SCH (08:24)
[2017-06-04] MEDS: ClonazePAM 0.5 MG TABLET PO SCH (08:27)
[2017-06-04] MEDS: METOPROLOL TARTRATE 50 MG TABLET PO SCH (08:29)
[2017-06-04] MEDS: GABAPENTIN 300 MG CAPSULE PO SCH (08:29)
[2017-06-04] MEDS: SENNA 187 MG TABLET PO SCH (08:29)
[2017-06-04] MEDS: CHOLECALCIFEROL (VIT D3) 1,000 UNITS TABLET PO SCH (08:30)
[2017-06-04] MEDS: LISINOPRIL 20 MG TABLET PO SCH (08:30)
[2017-06-04] MEDS: SIMVASTATIN 10 MG TABLET PO SCH (08:30)
[2017-06-04] MEDS: SERTRALINE HCL 50 MG TABLET PO SCH (08:39)
[2017-06-04] MEDS: SODIUM CHLORIDE 0.45% 1,000 ML IV SCH (08:40)
[2017-06-04] MEDS: TraMADol HCL 50 MG TABLET PO SCH (11:24)
[2017-06-04] MEDS: AmLODIPine BESYLATE 5 MG TABLET PO SCH (11:33)
[2017-06-04] MEDS: INSULIN ASPART 100 UNITS/ML SQ PRN (11:34)
[2017-06-04 11:47] VITALS: BP 119/70
[2017-06-04 12:32] LABS: GLUCOSE COMMENT 1 Received Meds; GLUCOSE,POINT OF CARE 164 MG/DL (70-110)
[2017-06-04 12:32] LABS: GLUCOSE,POINT OF CARE 128 MG/DL (70-110)
[2017-06-04] MEDS: MAGNESIUM SULFATE 2 GM in DEXTROSE 5%-WATER 50 ML IV PRN (12:35)
[2017-06-04] MEDS ORDERED: LEVO500 PO (15:18)
[2017-06-04] MEDS ORDERED: TRAM50TA4 PO (15:19)
[2017-06-04 16:10] VITALS: BP 134/79
== END 2017-06-04 16:55 | disposition home or self-care (01) | DRG 871 ==
LOC: EMS 21:36 → 5S 06-02 01:49
PROVIDERS: ADMIT Internal Medicine; ATTEND Internal Medicine
DX: A41.9 Sepsis, unspecified organism (principal); J96.00 Acute respiratory failure, unspecified whether with hypoxia or hypercapnia; N17.0 Acute kidney failure with tubular necrosis; J18.9 Pneumonia, unspecified organism; K85.90 Acute pancreatitis without necrosis or infection, unspecified; F03.90 Unspecified dementia, unspecified severity, without behavioral disturbance, psychotic disturbance, mood disturbance, and anxiety; J44.0 Chronic obstructive pulmonary disease with (acute) lower respiratory infection; J44.1 Chronic obstructive pulmonary disease with (acute) exacerbation; I10 Essential (primary) hypertension; F20.9 Schizophrenia, unspecified; E78.5 Hyperlipidemia, unspecified; G89.4 Chronic pain syndrome; E11.9 Type 2 diabetes mellitus without complications; K21.9 Gastro-esophageal reflux disease without esophagitis; F17.290 Nicotine dependence, other tobacco product, uncomplicated; E87.6 Hypokalemia; Z88.8 Allergy status to other drugs, medicaments and biological substances; Z88.1 Allergy status to other antibiotic agents; Z87.01 Personal history of pneumonia (recurrent); Z86.73 Personal history of transient ischemic attack (TIA), and cerebral infarction without residual deficits
CPT/HCPCS: 51702; 74176; 80307; 82805; 82962; 83605; 83735; 84443; 87040; 87070; 87081; 87086; 87106; 87205; 87804; 93005; 93970; 94640; 96365; 96375; 99285; J0456; J0696; J2270; J2405; J2920; J3475; J7030; J7050; J7060

== ENCOUNTER 2017-06-15 11:46 | Emergency (ER) | payer MEDICARE, OTHER ==
[~2017-06-15] VITALS: Ht 157.5 cm; Wt 65.5 kg
[~2017-06-15 11:46] MED LIST changes: +LEVO500 PO; -MORP30CP13 PO; -NITR100C PO; -PRED5TAB PO
[2017-06-15 13:24] LABS: BASOPHILS % (AUTO) 0.6 % (0.0-2.0); HEMATOCRIT 43.5 % (36-46); HEMOGLOBIN 14.7 g/dL (12.0-16.0); LYMPHOCYTES % (AUTO) 14.6 % (22.0-44.0); MEAN CORPUSCULAR HEMOGLOBIN 30.8 pg (26.0-34.0); MEAN CORPUSCULAR HGB CONC 33.9 G/dL (31.0-37.0); MEAN CORPUSCULAR VOLUME 91 fL (80-100); MONOCYTES % (AUTO) 7.3 % (2.0-9.0); NEUTROPHILS # (AUTO) 10.4 K/uL (1.8-7.7); NEUTROPHILS % (AUTO) 75.5 % (40.0-70.0); PLATELET COUNT (AUTO) 252 K/uL (150-450); RED BLOOD CELL COUNT(AUTO) 4.78 MIL/uL (4.00-5.20); RED CELL DISTRIBUTION WIDTH 14.3 % (11.5-14.5); WHITE BLOOD COUNT (AUTO) 13.8 K/uL (4.5-11.0)
[2017-06-15 13:48] LABS: ANION GAP 10 mmol/L (8-16); CALCIUM, TOTAL 10.1 mg/dL (8.8-10.5); CARBON DIOXIDE 29 mmol/L (22-29); CHLORIDE 96 mmol/L (98-107); CREATININE 1.28 mg/dL (0.60-1.30); GLOMERULAR FILTR. RATE CALC 41 mL/min (>60); POTASSIUM 3.7 mmol/L (3.5-5.1); SODIUM SERUM 135 mmol/L (136-145); UREA NITROGEN, BLOOD 17 mg/dL (7-18)
[2017-06-15 13:53] LABS: ALANINE AMINOTRANSFERASE 22 U/L (12-78); ALBUMIN 3.5 g/dL (3.4-5.0); ASPARTATE AMINOTRANSFERASE 14 U/L (15-37); BILIRUBIN,TOTAL 0.6 mg/dL (0.1-1.0); CREATINE KINASE, TOTAL 18 U/L (26-192); TOTAL PROTEIN, SERUM 7.4 g/dL (6.4-8.2)
[2017-06-15] MEDS ORDERED: SODIUM CHLORIDE 0.9% 1,000 ML IV ONE (14:15)
[2017-06-15 14:59] LABS: GLUCOSE,POINT OF CARE 107 MG/DL (70-110)
[2017-06-15] MEDS ORDERED: PANTOPRAZOLE SODIUM 40 MG/VIAL IVP ONE (16:00)
[2017-06-15] MEDS ORDERED: ONDANSETRON HCL 4 MG/2 ML VIAL IVP ONE (16:00)
[2017-06-15] MEDS ORDERED: MORPHINE SULFATE 2 MG/ML SYRINGE IVP ONE (16:00)
[2017-06-15 17:28] VITALS: BP 101/84
== END 2017-06-15 17:57 | disposition home or self-care (01) ==
LOC: EMS 11:49
DX: B86 Scabies (principal); J44.9 Chronic obstructive pulmonary disease, unspecified; E11.9 Type 2 diabetes mellitus without complications; K21.9 Gastro-esophageal reflux disease without esophagitis; I11.9 Hypertensive heart disease without heart failure; E78.00 Pure hypercholesterolemia, unspecified; F17.210 Nicotine dependence, cigarettes, uncomplicated; Z88.0 Allergy status to penicillin; Z88.6 Allergy status to analgesic agent; Z86.73 Personal history of transient ischemic attack (TIA), and cerebral infarction without residual deficits
CPT/HCPCS: 36415; 71010; 80053; 82550; 82962; 83605; 83880; 84484; 85025; 93005; 96361; 96374; 96375; 99285; C9113; J2270; J2405; J7030